=== PATIENT | male | born 1955 | race Caucasian/White ===

== ENCOUNTER 2023-03-19 14:06 | Outpatient (OUT) | payer MEDICARE, SELFPAY ==
--- NOTE | 2023-03-19 11:19 | PM.CN ---
Consult Note: HPI Data of Consult Patient: known to practice within the last 3 years Consult date: 03/19/23 Requesting Physician: TEMI JAY NP Primary Care Provider: KATE JERRY Consult Narrative Narrative: Clara is here for f/u of bilat LCIH injection done 02/23/23. He had no relief of pain after procedure. He denies medication SE. No new sensorimotor or bowel or bladder issues. He feels the tramadol is controlling his pain and helping him complete ADLs. He has had SAM in the past and does not want to repeat this procedure. Pain is in upper lumbar area bilat without radiculopathy. cc:: CC: TEMI JAY NP Review of Systems ROS Status of ROS 10 or more systems reviewed and unremarkable except as noted in history and below Musculoskeletal Reports: back pain Exam Constitutional: Documenting provider has reviewed patient's vital signs: yes Common normals: no apparent distress, average body habitus, oriented x3, healthy appearing, alert and well nourished General appearance: cooperative, comfortable, well developed and other (uses cane) Nutritional appearance: thin Orientation/consciousness: Yes awake, Yes oriented to person, Yes oriented to place and Yes oriented to time HENMT: Common normals: normocephalic, external nose normal and moist oral mucous membranes Respiratory: Common normals: normal respiratory effort, no retractions and no use of accessory muscles Effort & inspection: able to speak in complete sentences Back & Pelvis: Lumbar spine/lower back: normal to inspection, ROM limited, pain with ROM, paraspinal muscle tenderness, paraspinal muscle spasm, straight leg raise negative bilaterally and other soft tissue findings (facet load positive. positive arturo) Other lumbar soft tissue findings laterality: bilateral Extremity: Common normals: normal capillary refill Other: muscle strength 4/5 bilat, sensation intact Skin: Common normals: no rashes or lesions noted Assessment and Plan Assessment and Plan (1) Lumbar spondylosis: (2) Muscle spasm: (3) Myalgia: Plan schedule for lumbar/sacral TPI refill tramadol see chiropractor
== END 2023-03-19 14:07 ==
LOC: PM 05-06 14:07
PROVIDERS: PCP Internal Medicine; Visit Provider Nurse Practitioner
DX: M47.816 Spondylosis without myelopathy or radiculopathy, lumbar region (principal); M62.838 Other muscle spasm; M79.10 Myalgia, unspecified site
CPT/HCPCS: G0463

== ENCOUNTER 2023-03-25 11:34 | Emergency (ER) | payer MEDICARE, SELFPAY ==
[2023-03-25 11:38] VITALS: BP 142/83; PULSE 79; RESP 16; TEMP 36.4; O2SAT 99; BMI 26.1
--- NOTE | 2023-03-25 12:55 | XR_ITS ---
The [address] [address] Patient Name: VÍCTOR RIVERA MRN: [id number] date: 1955 Sex: M Assigned Patient Location: ED.MAIN Current Patient Location: ER Accession/Order Number: [id number] Exam Date: 03/25/2023 14:00 Report Date: 03/25/2023 14:39 At the request of: DEB BARBOSA Procedure: XR hip RT min 2V PROCEDURE: XR hip RT min 2V HISTORY: fall ; acute right hip pain after falling COMPARISON: XR hip right 02/11/2023 FINDINGS: BONES:Right hip replacement with stable hardware alignment; no acute fracture. Remote fracture of greater trochanter wires. SOFT TISSUES:No visible soft tissue swelling. EFFUSION:None visible. OTHER: Numerous surgical clips within the pelvis. IMPRESSION: 1. Stable postsurgical and degenerative changes of the right hip. 2. No appreciable acute abnormality. Electronically authenticated by: MAHESH BULLOCK Date: 03/25/2023 14:39
--- NOTE | 2023-03-25 12:55 | XR_ITS ---
The [place] [id number] Patient Name: VÍCTOR RIVERA MRN: [id number] date: 1955 Sex: M Assigned Patient Location: ED.MAIN Current Patient Location: ER Accession/Order Number: [id number] Exam Date: 03/25/2023 14:00 Report Date: 03/25/2023 14:35 At the request of: DEB BARBOSA Procedure: XR elbow RT min 3V PROCEDURE: XR elbow RT min 3V HISTORY: pain ; right elbow pain after falling off ladder COMPARISON: None. FINDINGS: BONES:Prominent degenerative osteophyte projecting from the coronoid process. Small degenerative osteophyte along lateral margin of the radial head. Tiny ossifications lateral to the radial neck suspected to be within the soft tissues likely representing sequela of remote injuries. No appreciable fracture or dislocation. SOFT TISSUES:No visible soft tissue swelling. EFFUSION:None visible. OTHER: Negative. IMPRESSION: 1. No appreciable acute bone abnormality. 2. Moderate degenerative changes. Electronically authenticated by: MAHESH BULLOCK Date: 03/25/2023 14:35
--- NOTE | 2023-03-25 12:56 | CT_ITS ---
The [address] [address] Patient Name: VÍCTOR RIVERA MRN: [id number] date: 1955 Sex: M Assigned Patient Location: ED.MAIN Current Patient Location: Accession/Order Number: [id number] Exam Date: 03/25/2023 14:00 Report Date: 03/25/2023 14:32 At the request of: DEB BARBOSA Procedure: CT head/brain wo con EXAM: CT head/brain wo con HISTORY: fall, head injury following fall from ladder COMPARISON: None. TECHNIQUE: Axial noncontrast CT imaging of the head was performed with coronal and sagittal reformats. This CT exam was performed using one or more of the following dose reduction techniques: Automated exposure control, adjustment of the MA and/or kV according to patient size, or use of iterative reconstruction technique. FINDINGS: Calvarium/skull base: Small posterior right parietal subgaleal lipoma. No evidence of acute fracture or destructive lesion. Mastoids and middle ears demonstrate no substantial mucosal disease. [place] ocular lens replacements. Paranasal sinuses: No air fluid levels. Brain: No acute intracranial hemorrhage. No acute large vascular territory infarct. Retroesophageal cystic change possibly relating to magna cisterna magna versus small arachnoid cyst. No substantial mass effect on adjacent cerebellar parenchyma. Mild parenchymal volume loss with associated prominence of the ventricular system and sulci. No mass lesion or mass effect. No hydrocephalus. Intracranial atherosclerosis. IMPRESSION: No acute intracranial process. Electronically authenticated by: ANABELLA SIMON Date: 03/25/2023 14:32
--- NOTE | 2023-03-25 13:18 | ED_ITS ---
HPI - Extremity Injury (Lower) General Chief Complaint: Extremity Injury, Lower Stated Complaint: HIP PAIN/ FALL Time Seen by Provider: 03/25/23 13:18 Source: patient Mode of arrival: Wheelchair Limitations: no limitations History of Present Illness HPI Narrative: Patient presents to emergency department with complaint of a fall. Patient states he was cutting tree limbs at home on a ladder. He was coming down the ladder and missed the last step and fell. He hit the right side of his head did not have loss of consciousness. Complains of right elbow pain and right hip pain.Denies any neck pain. He denies any paresthesias, or weakness. She is concerned because he had a right hip replacement in 1994. Patient does not take any blood thinners. His tetanus is not up-to-date. Denies any chest pain, shortness of breath. He denies any abdominal pain. Denies any nausea, vomiting, diarrhea, constipation, chest pain, or shortness of breath. Has not taking anything at home. Related Data Home Medications Medication Instructions Recorded Confirmed aspirin 81 mg tablet,delayed 81 mg PO DAILY 03/19/23 03/19/23 release (Adult Low Dose Aspirin) atenolol 25 mg tablet 25 mg PO DAILY 03/19/23 03/19/23 calcium carbonate 500 mg calcium 500 mg PO BID 03/19/23 03/19/23 (1,250 mg) chewable tablet (Calcium 500) lisinopril 20 mg tablet 20 mg PO DAILY 03/19/23 03/19/23 losartan 100 1 tab PO DAILY 03/19/23 03/19/23 mg-hydrochlorothiazide 25 mg tablet cymreykh-pqs-wactb acid 300 1 tab PO DAILY 03/19/23 03/19/23 mcg-lycopene 600 mcg-lutein 300 mcg tablet (Centrum Silver Men) tramadol 50 mg tablet 50 mg PO TID 03/19/23 03/19/23 albuterol sulfate 90 mcg/actuation 2 inh inhalation Q8H PRN shortness 03/25/23 03/25/23 aerosol inhaler of breath or wheezing lovastatin 20 mg tablet,extended mg PO 03/25/23 release 24 hr (Altoprev) omeprazole 40 mg capsule,delayed 40 mg PO DAILY 03/25/23 03/25/23 release Allergies Allergy/AdvReac Type Severity Reaction Status Date / Time No Known Drug Allergies Allergy Verified 03/19/23 12:42 Review of Systems ROS Status of ROS 10 or more systems reviewed and unremarkable except as noted in history and below Exam Narrative Exam Narrative: Nurses notes and vital signs reviewed and patient is not hypoxic. General: Nontoxic, Well-appearing and in no apparent distress. Skin: Warm, dry, no pallor noted. No Rash Head: Normocephalic,right parietal abrasion no step-offs. Neck: Supple, non-tender. Eye: Pupils are equal, round and EOMI. No scleral icterus. Ears, Nose, Mouth, and Throat: TM clear, no posterior oropharynx erythema or nasal mucosal hypertrophy, uvula is mid-line Oral mucosa is moist Cardiovascular: Regular Rate and Rhythm without murmur, gallop or rub. Respiratory: No accessory muscle use or respiratory distress. Lungs are clear to auscultation, no wheezing, rales or rhonchi Chest Wall: no tenderness Back: No midline thoracic or lumbar vertebral tenderness. No CVA tenderness Musculoskeletal: His palpation to the right hip. No edema, ecchymosis. Range of motion is limited by pain. no calf or popliteal tenderness, no lower extremity edema/swelling, DP +2, tuberculosis +2, capillary refill is brisk. GI: Abdomen is soft, non-distended. Normal bowel sounds. No masses appreciated. No tenderness to palpation. No rebound, guarding, or rigidity noted. Neurological: A&O x4. No cranial nerve dysfunction observed. No truncal ataxia. Moves all extremities. Sensation intact. Psychiatric: Cooperative and interactive. Normal mood and affect. Constitutional Vital Signs - 24 hr 03/25/23 11:38 Temperature 97.6 F Pulse Rate [Monitor] 79 Respiratory Rate 16 Blood Pressure [Left Arm] 142/83 H Pulse Oximetry 99 Oxygen Delivery Method Room Air Course Vital Signs Vital signs: Vital Signs Temperature 97.6 F 03/25/23 11:38 Pulse Rate 79 03/25/23 11:38 Respiratory Rate 16 03/25/23 11:38 Blood Pressure 142/83 H 03/25/23 11:38 Pulse Oximetry 99 03/25/23 11:38 Oxygen Delivery Method Room Air 03/25/23 11:38 Temperature 97.6 F 03/25/23 11:38 Pulse Rate 79 03/25/23 11:38 Respiratory Rate 16 03/25/23 11:38 Blood Pressure 142/83 H 03/25/23 11:38 Pulse Oximetry 99 03/25/23 11:38 Oxygen Delivery Method Room Air 03/25/23 11:38 MDM - Extremity Injury (Lower) MDM Narrative Medical decision making narrative: Patient;s and a shot was updated. Patient was given intramuscular analgesics which helped relieve the pain. Patient is able to bear weight. All of the x-rays and CT scan results were discussed with patient and . Structures provided for the patient. At this time the patient is without objective evidence of an acute process requiring hospitalization or inpatient management. The patient has remained hemodynamically stable. No additional indication for emergent studies at this time. I answered all questions. Discussed discharge instructions including standard anticipatory guidance and what should prompt a return to the emergency department, including if they get worse are not getting better or develops any new or concerning symptoms. I've given them specific time frame in which to follow-up, and who to follow-up with. The patient demonstrates understanding. Patient is nontoxic and stable for discharge with outpatient follow-up. This note was created with the assistance of a speech recognition program. Although the intention is to generate documents that actually reflects the content of the visit, no guarantees can be provided that every mistake has been identified and corrected by editing. Discharge Plan Discharge Chief Complaint: Extremity Injury, Lower Clinical Impression: Closed head injury, Contusion of hip, right Patient Disposition: Home, Self-Care Time of Disposition Decision: 15:09 Condition: Good Mode of Transportation: Private Vehicle Prescriptions / Home Meds: No Action aspirin [Adult Low Dose Aspirin] 81 mg tablet,delayed release (DR/EC) 81 mg PO DAILY atenolol 25 mg tablet 25 mg PO DAILY calcium carbonate [Calcium 500] 500 mg calcium (1,250 mg) tablet,chewable 500 mg PO BID Centrum Silver Men 300-600-300 mcg tablet 1 tab PO DAILY losartan-hydrochlorothiazide 100-25 mg tablet 1 tab PO DAILY lisinopril 20 mg tablet 20 mg PO DAILY tramadol 50 mg tablet 50 mg PO TID Altoprev 20 mg tablet extended release 24 hr PO omeprazole 40 mg capsule,delayed release(DR/EC) 40 mg PO DAILY albuterol sulfate 90 mcg/actuation HFA aerosol inhaler 2 inh inhalation Q8H PRN (Reason: shortness of breath or wheezing) Instructions: Diphtheria/Acellular Pertussis/Tetanus Booster Vaccine (Tdap) (By ..., Head Injury (ED), Hip Contusion (ED) Stand Alone Forms: Portal Instructions Referrals: KATE JERRY [Primary Care Provider] - 1 week Discharge Date/Time: 03/25/23 15:48
[2023-03-25] MEDS: MORPHINE SULFATE 4 MG/ML VIAL IM (15:28)
[2023-03-25] MEDS: ADACEL DIPH,PERTUSS(ACELL),TET VAC/PF 0.5 ML ADULT SYRINGE IM (15:29)
[2023-03-25 15:42] VITALS: BP 138/74; PULSE 79; RESP 16; O2SAT 100
== END 2023-03-25 15:48 | disposition home or self-care (01) ==
PROVIDERS: Emergency Provider Emergency Medicine; PCP Internal Medicine
DX: S70.01XA Contusion of right hip, initial encounter (principal); S09.8XXA Other specified injuries of head, initial encounter; W11.XXXA Fall on and from ladder, initial encounter; Z79.82 Long term (current) use of aspirin; Z79.899 Other long term (current) drug therapy; Z23 Encounter for immunization; Z96.641 Presence of right artificial hip joint
CPT/HCPCS: 70450; 73080; 73502; 90471; 90715; 96374; 99285

== ENCOUNTER 2023-04-27 13:44 | Outpatient (OUT) | payer MEDICARE, SELFPAY ==
--- NOTE | 2023-04-27 17:44 | CONS_ITS ---
CONSULTATION DATE: ??04/27/2023 HISTORY:? Patient returns today complaining of pain in his lower back on the right side.? Describes it as 5-7/10 pain, sharp in character, increased with activities such standing, walking and performing transitioning maneuvers.? Denies any change in bowel and bladder habits or new sensorimotor changes in the lower extremities. EXAMINATION:? Notable for patient having no clinical radiculopathy or myelopathy involving his lower extremities.? Patient has severe pain with lumbar facet loading maneuvers on the right at L5-S1.? IMPRESSION:? This patient appears to have chronic pain secondary to lumbosacral spondylosis, facet loading pain clinically on the right at L5-S1 from post laminectomy syndrome. RECOMMENDATIONS:? I have recommended proceeding with a diagnostic right sided L5-S1 facet joint injection under fluoroscopic guidance. As part of providing excellent, safe, comprehensive care, the following was completed at our patient's visit: 1. A medication reconciliation and review to ensure accurate knowledge of current/active medications, including asking our patients to inform us about any fovm-jeq-inrgriq medications or herbal remedies/nutritional supplements/alternative remedies. 2. A review to specifically ensure our patients have had annual screening for: elevated body mass index (BMI, see intake chart for exact total), tobacco use, screening for depression, and screening for unhealthy alcohol use.? When screening is concerning, patients are provided with education and the specific recommendation to discuss the concerning health issue and treatment options with their primary care provider. SUE
--- NOTE | 2023-04-27 17:44 | CONS_ITS ---
PROCEDURE DATE: ??04/27/2023 PROCEDURE:? Trigger point injection bilateral lumbar erector spinae muscle at the L5 level. PREOPERATIVE DIAGNOSIS:? Pain secondary to myofascial spasm and dysfunction of the lumbar erector spinae muscle. POSTOPERATIVE DIAGNOSIS:? Pain secondary to myofascial spasm and dysfunction of the lumbar erector spinae muscle. SOLUTION USED FOR INJECTION:? 2 mL of 2% lidocaine, 2 mL of 0.25% Marcaine and Kenalog 10 mg, total of 5 mL and 2 mL used for injection at each site. IMMEDIATE COMPLICATIONS:? None. PROCEDURE:? After informed consent was obtained from the patient, placed in the prone position.? Skin overlying the area was prepped with alcohol.? A 25 gauge, 1 ? inch needle was inserted into the substance left erector spinae muscle at the L5 level.? Needle was advanced until there was a mild twitch response.? We injected 2 mL of solution.? A similar procedure was performed in a similar fashion on the contralateral side.? Post-op needle was removed.? Patient reports reduction in pain symptoms post procedurally.? SUE
== END 2023-04-27 13:45 | disposition home or self-care (01) ==
LOC: PM 13:46
PROVIDERS: PCP Internal Medicine; Visit Provider Anesthesiology Pain Medicine
DX: G89.29 Other chronic pain (principal); M47.817 Spondylosis without myelopathy or radiculopathy, lumbosacral region; M96.1 Postlaminectomy syndrome, not elsewhere classified
CPT/HCPCS: 20552

== ENCOUNTER 2023-05-25 06:50 | Day surgery (SDC) | payer MEDICARE, SELFPAY ==
[2023-05-25 07:20] VITALS: PULSE 75; RESP 16; TEMP 36.6; O2SAT 97
[2023-05-25 07:58] VITALS: RESP 20
[2023-05-25 07:59] VITALS: BP 123/74; PULSE 70; O2SAT 94
[2023-05-25] MEDS: BUPIVACAINE HCL 0.25% PF 25 MG/10 ML VIAL 4 ML INJ (08:00)
[2023-05-25 08:02] VITALS: BP 135/76; PULSE 86; O2SAT 98
--- NOTE | 2023-05-25 10:08 | W.PM.PROCNOT ---
Date of procedure: 05/25/23 Pre-op diagnosis: lumbar spondylosis Post-op diagnosis: same Procedure: Right lumbar 5/sacral 1 facet injection Preop diagnosis includes pain secondary to spondylosis, Postop diagnosis same Under fluoroscopic guidance Solution injected: 2millilitersMarcaine 0.25% Anesthesia :none Immediate complications none Time out process compliant After informed consent obtained from the patient placed in the Prone proposition . area was prepped and draped in a sterile fashion using betadine. 25 gauge spinal needle inserted over each of the above mentioned target areas . Winside were directed towards the target under fluoroscopic guidance . after encountering each of the targets , no indication of intravascular intraneuronal or intrathecal needle tip placement. Then 0 .5 to 1 Milliliter was injected at each level. Winside removed postoperatively. patient transferred to recovery in stable condition to be discharged home after meeting criteria Anesthesia: Local Surgeon: Deanna Briseno Condition: stable
== END 2023-05-25 08:07 | disposition home or self-care (01) ==
PROVIDERS: PCP Internal Medicine; Visit Provider Anesthesiology Pain Medicine
DX: M47.816 Spondylosis without myelopathy or radiculopathy, lumbar region (principal)
CPT/HCPCS: 64493

== ENCOUNTER 2023-06-01 12:25 | Outpatient (OUT) | payer MEDICARE, SELFPAY ==
--- NOTE | 2023-06-01 | CONS_ITS ---
CONSULTATION DATE: ??06/01/2023 TO:? Dr. Blood HISTORY:? Patient returns today complaining of 3-7/10 pain in the lower back, stabbing in character, increased with activities such as standing, walking and performing transitioning maneuvers.? He feels most comfortable in the semi- recumbent position.? Denies any change in bowel and bladder habits or new sensorimotor changes in the lower extremities. EXAM:? Notable for patient having no clinical radiculopathy or myelopathy involving his lower extremities.? Patient did have a significant amount of myofascial spasm of the lumbar paravertebral muscles as well as his gluteus medius occurring bilaterally.? IMPRESSION:? Our impression is patient appears to have chronic pain secondary to post laminectomy syndrome and failed conservative therapy with conservative modalities.? RECOMMENDATIONS:? I have asked him to start tizanidine 4 mg pill, one-half to one pill b.i.d. as tolerated.? To continue with his current dose of tramadol but to reduce as tolerated.? I have asked him to reduce to approximately 80 pills per month.? We will see him back in the office in approximately three months? time or sooner if needed. As part of providing excellent, safe, comprehensive care, the following was completed at our patient's visit: 1. A medication reconciliation and review to ensure accurate knowledge of current/active medications, including asking our patients to inform us about any mzbl-fzl-lngzqvu medications or herbal remedies/nutritional supplements/alternative remedies. 2. A review to specifically ensure our patients have had annual screening for: elevated body mass index (BMI, see intake chart for exact total), tobacco use, screening for depression, and screening for unhealthy alcohol use.? When screening is concerning, patients are provided with education and the specific recommendation to discuss the concerning health issue and treatment options with their primary care provider. SUE
== END 2023-06-01 12:26 | disposition home or self-care (01) ==
PROVIDERS: PCP Internal Medicine; Visit Provider Anesthesiology Pain Medicine
DX: M96.1 Postlaminectomy syndrome, not elsewhere classified (principal); G89.29 Other chronic pain
CPT/HCPCS: G0463

== ENCOUNTER 2023-09-02 12:17 | Outpatient (OUT) | payer MEDICARE, SELFPAY ==
--- NOTE | 2023-09-02 12:38 | PM.CN ---
Consult Note: HPI Data of Consult Patient: known to practice within the last 3 years Requesting Physician: Wilda Harvey NP Primary Care Provider: Pasquale Blood DO Consult Narrative Reason for consult: f/u Narrative: Clara Mukherjee a pleasant 68 year old male presents for evaluation and management of chronic low back pain post laminectomy and fusion. Pain today 11/27, finds benefit to tramadol TID PRN. Has not benefitted from injection therapy and is not interested in additional injections. Patient would like to have PCP take over tramadol and he has discussed this with Dr Blood. cc:: CC: Wilda Harvey NP Review of Systems ROS Status of ROS 10 or more systems reviewed and unremarkable except as noted in history and below Musculoskeletal Reports: back pain Meds Home Medications and Allergies Home Medications Medication Instructions Recorded Confirmed Type aspirin 81 mg tablet,delayed 81 mg PO DAILY 03/19/23 05/25/23 History release (Adult Low Dose Aspirin) atenolol 25 mg tablet 25 mg PO DAILY 03/19/23 05/25/23 History lisinopril 20 mg tablet 20 mg PO DAILY 03/19/23 05/25/23 History losartan 100 1 tab PO DAILY 03/19/23 05/25/23 History mg-hydrochlorothiazide 25 mg tablet vvloepxi-xa-tvwtv 300 mcg-K 60 1 tab PO DAILY 03/19/23 05/25/23 History mcg-lycop 600 mcg-lutein 300 mcg tablet (Centrum Silver Men) tramadol 50 mg tablet 50 mg PO TID 03/19/23 05/25/23 History albuterol sulfate 90 mcg/actuation 2 inh inhalation Q8H PRN shortness 03/25/23 05/25/23 History aerosol inhaler of breath or wheezing lovastatin 20 mg tablet,extended mg PO 03/25/23 History release 24 hr (Altoprev) omeprazole 40 mg capsule,delayed 40 mg PO DAILY 03/25/23 05/25/23 History release acetaminophen 500 mg tablet mg 05/25/23 History tizanidine 4 mg tablet 4 mg PO BID PRN muscle spasticity 06/01/23 Rx #60 tabs tramadol 50 mg tablet 50 mg PO TID PRN pain #90 tabs 08/31/23 Rx Allergies Allergy/AdvReac Type Severity Reaction Status Date / Time No Known Drug Allergies Allergy Verified 03/19/23 12:42 Exam Constitutional Documenting provider has reviewed patient's vital signs: yes Common normals: no apparent distress, average body habitus, oriented x3, healthy appearing, alert and well nourished General appearance: cooperative, comfortable, well developed and other (uses cane) Nutritional appearance: thin Orientation/consciousness: Yes awake, Yes oriented to person, Yes oriented to place and Yes oriented to time HENMT Common normals: normocephalic, external nose normal and moist oral mucous membranes Respiratory Common normals: normal respiratory effort, no retractions and no use of accessory muscles Effort & inspection: able to speak in complete sentences Back & Pelvis Lumbar spine/lower back: normal to inspection, ROM limited, pain with ROM, paraspinal muscle tenderness, paraspinal muscle spasm, straight leg raise negative bilaterally and other soft tissue findings (facet load positive. positive arturo) Other lumbar soft tissue findings laterality: bilateral Extremity Common normals: normal capillary refill Other: muscle strength 4/5 bilat, sensation intact Assessment and Plan Assessment and Plan (1) Status post lumbar spinal fusion: (2) Chronic prescription opiate use: (3) Post laminectomy syndrome: Plan declining additional injection therapy or procedures patient would like to go to PCP for tramadol f/u as needed, did recommend meeting Dr Powell to discuss TFESIs
== END 2023-09-02 12:18 | disposition home or self-care (01) ==
LOC: PM 12:18
PROVIDERS: PCP Internal Medicine; Visit Provider Nurse Practitioner
DX: Z79.891 Long term (current) use of opiate analgesic (principal); Z98.890 Other specified postprocedural states
CPT/HCPCS: G0463